=== PATIENT | male | born 1980 | race Caucasian/White ===

== ENCOUNTER 2017-06-10 10:00 | Outpatient (RCR) | payer BC | END 2017-06-13 | disposition home or self-care (01) | LOC: WSPT | DX: I89.0 Lymphedema, not elsewhere classified (principal) ==

== ENCOUNTER 2017-09-10 09:00 | Outpatient (RCR) | payer BC | END 2017-09-12 | disposition home or self-care (01) | LOC: WSPT | DX: I89.0 Lymphedema, not elsewhere classified (principal) ==

== ENCOUNTER 2017-12-02 09:01 | Emergency (ER) | payer BC ==
[~2017-12-02] VITALS: Ht 190.5 cm; Wt 135.3 kg
[2017-12-02 09:06] VITALS: TEMP 97.5
[2017-12-02 09:32] LABS: BASO # 0.1 (0.0-0.2); BASO % 0.8 % (0.0-2.0); EOS # 0.2 (0.0-0.7); EOS % 2.7 % (0-4.0); GRAN # 3.6 (1.4-6.5); GRAN % 49.4 % (42.2-75.2); HEMATOCRIT 42.9 % (42.0-52.0); HEMOGLOBIN 14.5 g/dl (13.5-18.0); LYMPH # 2.7 (1.2-3.4); LYMPH % 36.5 % (20.0-51.0); MEAN CELL VOLUME 83 fl (80.0-100.0); MEAN CORPUSCULAR HEMOGLOBIN 28 pg (27.0-31.0); MEAN CORPUSCULAR HGB CONC 34 g/dl (33.0-37.0); MEAN PLATELET VOLUME 11.5 fl (7.4-10.4); MONO # 0.7 (0.1-0.6); MONO % 10.2 % (1.7-9.3); PLATELET COUNT 206 K/mm3 (130-400); RED BLOOD COUNT 5.17 M/mm3 (4.20-5.60)
[2017-12-02 09:49] LABS: ALBUMIN 4.2 gm/dL (3.5-5.0); BILIRUBIN,TOTAL 0.7 mg/dL (0.0-1.0); C-REACTIVE PROTEIN 1.5 mg/dL (0.0-0.9); CALCIUM 9.1 mg/dL (8.4-10.2); CREATININE, serum 0.98 mg/dL (0.66-1.25); POTASSIUM 3.7 mmol/L (3.4-5.0); TOTAL PROTEIN 8.2 gm/dL (6.4-8.2)
[2017-12-02 10:14] LABS: COLLECTION METHOD CLEAN CATCH
[2017-12-02 10:20] LABS: MUCOUS Present /lpf; PH 7 (5-8); SQUAMOUS EPITHELIAL 0-2 /hpf; URINE APPEARANCE Clear; URINE BACTERIA None Seen /hpf; URINE BILIRUBIN Negative (NEGATIVE); URINE BLOOD 2+ (NEGATIVE); URINE COLOR Yellow; URINE GLUCOSE Negative (NEGATIVE); URINE KETONE Negative (NEGATIVE); URINE LEUKOCYTE ESTERASE Negative (NEGATIVE); URINE NITRATE Negative (NEGATIVE); URINE PROTEIN(semi-quant) Negative (NEGATIVE); URINE RBC 20-50 /hpf; URINE UROBILINOGEN Negative (NEGATIVE)
[2017-12-02] MEDS ORDERED: NORCO 325 MG-51 TAB PO (10:31)
[2017-12-02] MEDS ORDERED: ZOFRAN ODT4 MG PO (10:31)
[2017-12-02 10:44] VITALS: BP 150/102; PULSE 92
== END 2017-12-02 10:46 | disposition home or self-care (01) ==
LOC: COL.ER 09:01
PROVIDERS: Emergency Medicine
DX: N20.0 Calculus of kidney (principal); I10 Essential (primary) hypertension; E11.9 Type 2 diabetes mellitus without complications; Z90.89 Acquired absence of other organs; Z87.442 Personal history of urinary calculi
CPT/HCPCS: J1885; J2405; J3010; J7030

== ENCOUNTER 2017-12-08 10:40 | Observation (INO) | payer BC ==
[~2017-12-08] VITALS: Ht 190.5 cm; Wt 139.9 kg
[~2017-12-08 10:40] MED LIST: NORCO 325 MG-51 TAB PO; ZOFRAN ODT4 MG PO
[2017-12-08] MEDS ORDERED: PRINZIDE 12.5 M1 TA1 PO (11:05)
[2017-12-08] MEDS ORDERED: SYNTHROID0.2 MG/TAB PO (11:05)
[2017-12-08] MEDS ORDERED: VITAMIN D31000 IU PO (11:06)
[2017-12-08] MEDS ORDERED: ZYRTEC 10MG10 MG PO (11:06)
[2017-12-08] MEDS ORDERED: ASPIRIN 81M81 MG/TA2 PO (11:06)
[2017-12-08] MEDS ORDERED: GLUCOPHAGE1000 MG PO (11:06)
[2017-12-08] MEDS ORDERED: ANDROGEL1.62% TP (11:07)
[2017-12-08 11:24] LABS: BASO # 0.1 (0.0-0.2); BASO % 0.8 % (0.0-2.0); EOS # 0.1 (0.0-0.7); EOS % 1.4 % (0-4.0); GRAN # 5.4 (1.4-6.5); GRAN % 64.9 % (42.2-75.2); HEMATOCRIT 43.1 % (42.0-52.0); HEMOGLOBIN 14.7 g/dl (13.5-18.0); LYMPH % 23.7 % (20.0-51.0); MEAN CELL VOLUME 82 fl (80.0-100.0); MEAN CORPUSCULAR HEMOGLOBIN 28 pg (27.0-31.0); MEAN CORPUSCULAR HGB CONC 34 g/dl (33.0-37.0); MEAN PLATELET VOLUME 11.6 fl (7.4-10.4); MONO # 0.7 (0.1-0.6); MONO % 8.8 % (1.7-9.3); PLATELET COUNT 216 K/mm3 (130-400); RED BLOOD COUNT 5.29 M/mm3 (4.20-5.60); REDCELL DISTRIBUTION WIDTH-CV 12.8 % (11.5-14.5)
[2017-12-08 11:40] LABS: ALBUMIN 4.2 gm/dL (3.5-5.0); CALCIUM 9.2 mg/dL (8.4-10.2); CREATININE, serum 1.11 mg/dL (0.66-1.25); POTASSIUM 3.2 mmol/L (3.4-5.0); TOTAL PROTEIN 8.1 gm/dL (6.4-8.2)
[2017-12-08 11:51] LABS: C-REACTIVE PROTEIN 1.4 mg/dL (0.0-0.9)
[2017-12-08 12:53] LABS: COLLECTION METHOD CLEAN CATCH
[2017-12-08 13:10] LABS: PH 7 (5-8); SQUAMOUS EPITHELIAL 0-2 /hpf; URINE APPEARANCE Clear; URINE BACTERIA None Seen /hpf; URINE BILIRUBIN Negative (NEGATIVE); URINE BLOOD 1+ (NEGATIVE); URINE COLOR Colorless; URINE GLUCOSE Negative (NEGATIVE); URINE KETONE Negative (NEGATIVE); URINE LEUKOCYTE ESTERASE Negative (NEGATIVE); URINE NITRATE Negative (NEGATIVE); URINE PROTEIN(semi-quant) Negative (NEGATIVE); URINE RBC 0-2 /hpf; URINE UROBILINOGEN Negative (NEGATIVE)
[2017-12-08] MEDS ORDERED: BYDUREON PEN2 MG SQ (14:19)
[2017-12-08 15:20] VITALS: BP 151/84; PULSE 69; TEMP 98.3
[2017-12-08 15:49] VITALS: BP 151/90; PULSE 96
[2017-12-08 16:00] VITALS: BP 151/90; PULSE 96
[2017-12-08 16:49] VITALS: BP 138/70; PULSE 89
[2017-12-08 19:45] VITALS: BP 131/85; PULSE 89; TEMP 98.4
[2017-12-08 23:54] VITALS: BP 135/82; PULSE 70; TEMP 98.4
[2017-12-09 04:51] VITALS: BP 141/82; PULSE 85; TEMP 98.1
[2017-12-09 07:20] VITALS: BP 132/71; PULSE 76; TEMP 97.9
[2017-12-09 11:35] VITALS: BP 128/71; PULSE 76; TEMP 98.2
[2017-12-09 16:28] VITALS: BP 152/75; PULSE 72; TEMP 97.7
== END 2017-12-09 17:39 | disposition home or self-care (01) ==
LOC: COL.ER 10:40 → SURG 14:07
PROVIDERS: Emergency Medicine
DX: N20.1 Calculus of ureter (principal); I10 Essential (primary) hypertension; G47.30 Sleep apnea, unspecified; Z85.850 Personal history of malignant neoplasm of thyroid; Z79.82 Long term (current) use of aspirin; Z79.899 Other long term (current) drug therapy; E11.9 Type 2 diabetes mellitus without complications; Z79.84 Long term (current) use of oral hypoglycemic drugs; E66.01 Morbid (severe) obesity due to excess calories; Z68.41 Body mass index [BMI] 40.0-44.9, adult; E03.9 Hypothyroidism, unspecified
CPT/HCPCS: C1769; C2617; G0378; J0360; J0690; J1170; J1885; J2270; J2405; J2704; J2765; J3010; J7030; Q9967

== ENCOUNTER 2017-12-16 09:00 | Outpatient (RCR) | payer BC ==
[~2017-12-16 09:00] MED LIST changes: +ANDROGEL1.62% TP; +ASPIRIN 81M81 MG/TA2 PO; +BYDUREON PEN2 MG SQ; +GLUCOPHAGE1000 MG PO; +PRINZIDE 12.5 M1 TA1 PO; +SYNTHROID0.2 MG/TAB PO; +VITAMIN D31000 IU PO; +ZYRTEC 10MG10 MG PO
== END 2017-12-22 | disposition home or self-care (01) ==
LOC: WSPT
DX: M25.512 Pain in left shoulder (principal); M25.511 Pain in right shoulder; M54.2 Cervicalgia; I89.0 Lymphedema, not elsewhere classified

== ENCOUNTER 2018-06-27 11:00 | Outpatient (RCR) | payer BC | END 2018-06-29 | disposition home or self-care (01) | LOC: WSPT | DX: I89.0 Lymphedema, not elsewhere classified (principal) ==

== ENCOUNTER 2018-09-29 09:00 | Outpatient (RCR) | payer BC | END 2018-09-30 | disposition home or self-care (01) | LOC: WSPT | DX: I89.0 Lymphedema, not elsewhere classified (principal) ==

== ENCOUNTER 2018-12-29 08:15 | Outpatient (RCR) | payer BC | END 2019-01-04 | disposition still patient (30) | LOC: WSPT | DX: I89.0 Lymphedema, not elsewhere classified (principal) ==

== ENCOUNTER 2019-03-30 09:00 | Outpatient (RCR) | payer BC | END 2019-04-05 | disposition home or self-care (01) | LOC: WSPT | DX: I89.0 Lymphedema, not elsewhere classified (principal) ==

== ENCOUNTER 2019-06-29 09:00 | Outpatient (RCR) | payer BC | END 2019-07-05 | disposition home or self-care (01) | LOC: WSPT | DX: I89.0 Lymphedema, not elsewhere classified (principal) ==

== ENCOUNTER 2020-04-11 09:00 | Outpatient (RCR) | payer BC | END 2020-04-17 | disposition home or self-care (01) | LOC: WSPT | DX: I89.0 Lymphedema, not elsewhere classified (principal) ==

== ENCOUNTER 2020-05-25 19:10 | Emergency (ER) | payer BC ==
[~2020-05-25] VITALS: Ht 190.5 cm; Wt 148.6 kg
[2020-05-25 19:13] VITALS: TEMP 98
[2020-05-25 19:42] LABS: COLLECTION METHOD CLEAN CATCH
[2020-05-25 19:49] LABS: BASO # 0.1 (0.0-0.2); BASO % 0.9 % (0.0-2.0); EOS # 0.2 (0.0-0.7); EOS % 2.6 % (0-4.0); GRAN # 5.1 (1.4-6.5); GRAN % 58.5 % (42.2-75.2); HEMOGLOBIN 12.7 g/dl (13.5-18.0); LYMPH # 2.7 (1.2-3.4); LYMPH % 30.3 % (20.0-51.0); MEAN CELL VOLUME 82 fl (80.0-100.0); MEAN CORPUSCULAR HEMOGLOBIN 27 pg (27.0-31.0); MEAN CORPUSCULAR HGB CONC 33 g/dl (33.0-37.0); MEAN PLATELET VOLUME 11.6 fl (7.4-10.4); MONO # 0.7 (0.1-0.6); MONO % 7.4 % (1.7-9.3); PLATELET COUNT 195 K/mm3 (130-400); RED BLOOD COUNT 4.74 M/mm3 (4.20-5.60); REDCELL DISTRIBUTION WIDTH-CV 13.2 % (11.5-14.5)
[2020-05-25 19:51] LABS: PH 7 (5-8); SQUAMOUS EPITHELIAL 0-2 /hpf; URINE APPEARANCE Clear; URINE BACTERIA Occasional /hpf; URINE BILIRUBIN Negative (NEGATIVE); URINE BLOOD 3+ (NEGATIVE); URINE COLOR Yellow; URINE GLUCOSE Negative (NEGATIVE); URINE KETONE Negative (NEGATIVE); URINE LEUKOCYTE ESTERASE 1+ (NEGATIVE); URINE NITRATE Negative (NEGATIVE); URINE PROTEIN(semi-quant) Negative (NEGATIVE); URINE RBC >50 /hpf; URINE UROBILINOGEN Negative (NEGATIVE)
[2020-05-25 20:05] LABS: ALBUMIN 4.4 gm/dL (3.5-5.0); BILIRUBIN,TOTAL 0.6 mg/dL (0.0-1.0); C-REACTIVE PROTEIN 1.4 mg/dL (0.0-0.9); CALCIUM 8.6 mg/dL (8.4-10.2); CREATININE, serum 0.83 (0.66-1.25); POTASSIUM 3.3 mmol/L (3.4-5.0); TOTAL PROTEIN 7.4 gm/dL (6.4-8.2)
[2020-05-25] MEDS ORDERED: CEPHALEXIN500 M1 PO (20:56)
[2020-05-25 21:15] VITALS: BP 152/78; PULSE 80
== END 2020-05-25 21:15 | disposition home or self-care (01) ==
LOC: COL.ER 19:10
PROVIDERS: Physician Assistant
DX: N39.0 Urinary tract infection, site not specified (principal); I10 Essential (primary) hypertension; E11.9 Type 2 diabetes mellitus without complications; E03.9 Hypothyroidism, unspecified; E66.9 Obesity, unspecified; Z79.890 Hormone replacement therapy; Z79.82 Long term (current) use of aspirin; Z87.442 Personal history of urinary calculi; Z79.84 Long term (current) use of oral hypoglycemic drugs
CPT/HCPCS: J2405; J7030

== ENCOUNTER 2020-06-27 09:00 | Outpatient (RCR) | payer BC ==
[~2020-06-27 09:00] MED LIST changes: +CEPHALEXIN500 M1 PO
== END 2020-07-04 | disposition home or self-care (01) ==
LOC: WSPT
DX: M25.511 Pain in right shoulder (principal); M25.512 Pain in left shoulder; M54.2 Cervicalgia; I89.0 Lymphedema, not elsewhere classified

== ENCOUNTER 2020-10-10 09:00 | Outpatient (RCR) | payer BC | END 2020-10-16 | disposition still patient (30) | LOC: WSPT | DX: I89.0 Lymphedema, not elsewhere classified (principal); M25.511 Pain in right shoulder; M25.512 Pain in left shoulder; M54.2 Cervicalgia ==

== ENCOUNTER 2021-01-09 09:45 | Outpatient (RCR) | payer BC | END 2021-01-15 | disposition home or self-care (01) | LOC: WSPT | DX: I89.0 Lymphedema, not elsewhere classified (principal) ==

== ENCOUNTER 2021-04-10 09:00 | Outpatient (RCR) | payer BC | END 2021-04-16 | disposition home or self-care (01) | LOC: WSPT | DX: I89.0 Lymphedema, not elsewhere classified (principal); M25.512 Pain in left shoulder; M25.511 Pain in right shoulder ==

== ENCOUNTER 2021-06-26 09:00 | Outpatient (RCR) | payer BC | END 2021-06-30 | disposition home or self-care (01) | LOC: WSPT | DX: M54.2 Cervicalgia (principal); M25.512 Pain in left shoulder; M25.511 Pain in right shoulder; I89.0 Lymphedema, not elsewhere classified ==

== ENCOUNTER 2021-08-14 09:00 | Outpatient (RCR) | payer BC | END 2021-08-28 | disposition home or self-care (01) | LOC: WSPT | DX: I89.0 Lymphedema, not elsewhere classified (principal) ==

== ENCOUNTER 2021-09-25 15:45 | Outpatient (RCR) | payer BC | END 2021-09-28 | disposition still patient (30) | LOC: WSPT | DX: M25.511 Pain in right shoulder (principal); M25.512 Pain in left shoulder; M54.2 Cervicalgia; I89.0 Lymphedema, not elsewhere classified ==

== ENCOUNTER 2021-10-23 09:00 | Outpatient (RCR) | payer BC | END 2021-10-28 | disposition home or self-care (01) | LOC: WSPT | DX: M54.2 Cervicalgia (principal); M25.511 Pain in right shoulder; M25.512 Pain in left shoulder; I89.0 Lymphedema, not elsewhere classified ==

== ENCOUNTER 2021-11-22 09:00 | Outpatient (RCR) | payer BC | END 2021-11-28 | disposition home or self-care (01) | LOC: WSPT | DX: M25.511 Pain in right shoulder (principal); M25.512 Pain in left shoulder; M54.2 Cervicalgia; I89.0 Lymphedema, not elsewhere classified ==

== ENCOUNTER 2021-12-25 09:45 | Outpatient (RCR) | payer BC | END 2021-12-28 | disposition home or self-care (01) | LOC: WSPT | DX: I89.0 Lymphedema, not elsewhere classified (principal) ==

== ENCOUNTER 2022-01-22 09:00 | Outpatient (RCR) | payer BC | END 2022-01-28 | disposition home or self-care (01) | LOC: WSPT | DX: I89.0 Lymphedema, not elsewhere classified (principal) ==

== ENCOUNTER 2022-02-26 09:00 | Outpatient (RCR) | payer BC | END 2022-02-28 | disposition home or self-care (01) | LOC: WSPT | DX: I89.0 Lymphedema, not elsewhere classified (principal); M25.511 Pain in right shoulder; M25.512 Pain in left shoulder ==

== ENCOUNTER → 2022-04-30 | Outpatient (RCR) | payer BC | END | disposition home or self-care (01) | LOC: WSPT | DX: I89.0 Lymphedema, not elsewhere classified (principal); M25.511 Pain in right shoulder; M25.512 Pain in left shoulder; M54.2 Cervicalgia ==

== ENCOUNTER 2022-07-30 09:00 | Outpatient (RCR) | payer BC | END 2022-07-31 | disposition home or self-care (01) | LOC: WSPT | DX: M25.511 Pain in right shoulder (principal); M25.512 Pain in left shoulder; M54.2 Cervicalgia; I89.0 Lymphedema, not elsewhere classified ==

== ENCOUNTER 2022-10-26 09:45 | Outpatient (RCR) | payer BC | END 2022-10-28 | disposition home or self-care (01) | LOC: WSPT | DX: I89.0 Lymphedema, not elsewhere classified (principal); M25.512 Pain in left shoulder; M25.511 Pain in right shoulder ==

== ENCOUNTER 2023-02-25 09:00 | Outpatient (RCR) | payer BC | END 2023-02-28 | disposition home or self-care (01) | LOC: WSPT | DX: I89.0 Lymphedema, not elsewhere classified (principal); M25.511 Pain in right shoulder; M25.512 Pain in left shoulder; M54.2 Cervicalgia ==

== ENCOUNTER 2023-03-25 09:00 | Outpatient (RCR) | payer BC | END 2023-03-30 | disposition home or self-care (01) | LOC: WSPT | DX: M25.511 Pain in right shoulder (principal); M25.512 Pain in left shoulder; M54.2 Cervicalgia; I89.0 Lymphedema, not elsewhere classified ==

== ENCOUNTER 2023-06-26 09:00 | Outpatient (RCR) | payer BC | END 2023-06-30 | disposition home or self-care (01) | LOC: WSPT | DX: M54.2 Cervicalgia (principal); M25.511 Pain in right shoulder; M25.512 Pain in left shoulder; I89.0 Lymphedema, not elsewhere classified ==

== ENCOUNTER 2023-07-22 09:00 | Outpatient (RCR) | payer BC | END 2023-07-31 | disposition home or self-care (01) | LOC: WSPT | DX: I89.0 Lymphedema, not elsewhere classified (principal); M25.512 Pain in left shoulder; M25.511 Pain in right shoulder ==

== ENCOUNTER 2023-08-19 09:00 | Outpatient (RCR) | payer BC | END 2023-08-29 | disposition home or self-care (01) | LOC: WSPT | DX: I89.0 Lymphedema, not elsewhere classified (principal); M25.512 Pain in left shoulder; M25.511 Pain in right shoulder; M54.2 Cervicalgia ==

== ENCOUNTER 2023-09-23 09:45 | Outpatient (RCR) | payer BC | END 2023-09-29 | disposition home or self-care (01) | LOC: WSPT | DX: I89.0 Lymphedema, not elsewhere classified (principal); M54.2 Cervicalgia; M25.511 Pain in right shoulder; M25.512 Pain in left shoulder ==

== ENCOUNTER 2024-03-23 09:00 | Outpatient (RCR) | payer BC | END 2024-03-30 | disposition home or self-care (01) | LOC: WSPT | DX: I89.0 Lymphedema, not elsewhere classified (principal); M25.511 Pain in right shoulder; M25.512 Pain in left shoulder ==